=== PATIENT | male | born 2000 | race Caucasian/White ===

== ENCOUNTER 2022-07-18 17:01 | Emergency (ER) | payer SELFPAY ==
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
[2022-07-18 17:42] VITALS: BP 120/85; PULSE 70; RESP 18; TEMP 36.7; O2SAT 98
--- NOTE | 2022-07-18 18:19 | ED.WOUNDLAC ---
HPI - Wound/Laceration General Chief Complaint: Wound/Laceration Stated Complaint: hand laceration Time Seen by Provider: 07/18/22 18:10 History of Present Illness HPI narrative: Patient is a 22-year-old male presenting with a hand laceration. Patient states that he was putting together a new bed frame when he slipped with some scissors and cut himself on his left hand. States that he sustained a laceration which immediately started bleeding. States that it continues to bleed despite putting gauze on it. Denies further injuries or complaints. Related Data Home Medications Medication Instructions Recorded Confirmed No Home Medications 07/18/22 07/18/22 Allergies Allergy/AdvReac Type Severity Reaction Status Date / Time No Known Allergies Allergy Verified 07/18/22 18:00 Review of Systems Review of Systems: All systems reviewed & are unremarkable except as noted in HPI and below Exam Narrative: GENERAL: Well-appearing, well-nourished, and in no acute distress. HEAD: Normocephalic, atraumatic. EYES: PERRLA and EOMI. ENT: Nares clear, no rhinorrhea or epistaxis. Mucous membranes moist. NECK: Supple. CHEST: Clear to auscultation. No respiratory distress. HEART: Regular rate and rhythm. No murmur heard. Normal peripheral pulses. ABDOMEN: Soft, nontender, nondistended, normal active bowel sounds. EXTREMITIES: 1 cm laceration to the dorsal aspect of the patient's left hand between first and second digits, neurovascularly intact SKIN: Warm, dry, no rash. NEURO: No focal deficits. Alert and oriented x3. PSYCH: Normal mood and affect. Course Vital Signs Vital signs: Vital Signs Temperature 98.0 F 07/18/22 17:42 Pulse Rate 70 07/18/22 17:42 Respiratory Rate 18 07/18/22 17:42 Blood Pressure 120/85 07/18/22 17:42 Pulse Oximetry 98 07/18/22 17:42 Oxygen Delivery Room Air 07/18/22 17:42 Temperature 98.2 F 07/18/22 20:44 Pulse Rate 84 07/18/22 20:44 Respiratory Rate 18 07/18/22 20:44 Blood Pressure 120/71 07/18/22 20:44 Pulse Oximetry 97 07/18/22 20:44 Oxygen Delivery Room Air 07/18/22 17:42 Procedures Laceration Laceration 1: Date: 07/18/22 Site: hand Side (If applicable): left Size (cm): 1 Description: linear Depth: simple, single layer Local Anesthetic: lidocaine 1% Pre-repair: irrigated ====== Skin Level ====== Skin layer closed with: nylon Size (cm): 4-0 Number of sutures: 3 Technique: simple, interrupted ====== Subcutaneous Layer ====== ====== Muscle Layer ====== ====== Tendon Layer ====== MDM - Wound/Laceration MDM Narrative Medical decision making narrative: Patient is a 22-year-old male presenting with a laceration to his left hand. Tetanus was updated. X-ray was obtained which shows a retained foreign body along the lateral aspect of his left hand by his fifth metacarpal. Patient's laceration is on the medial aspect between his first and second digit. Do not feel that this retained foreign body is related to his current injury. Laceration was repaired at bedside without complication. Advised that he have the stitches removed in 10 to 14 days. Appropriate return precautions were given. Patient voiced understanding and is agreeable with plan. Discharged in stable condition. Critical Care Time Critical Care Time Critical Care Time: No Discharge Plan Discharge Clinical Impression: Laceration Patient Disposition: Home, Self-Care Condition: Stable Instructions: Antibiotic Form, Laceration (ED) Additional Instructions: Please follow-up with primary care. Please have your stitches removed in 10 to 14 days. If you develop symptoms concerning for infection such as spreading redness or fevers, or other concerning symptoms arise, please return to the ER. Prescriptions: No Action No Home Medications Follow-up/Referrals:
[2022-07-18] MEDS: TETANUS,DIPHTHERIA,AC PERTUSSIS ADULT (0.5 ML) BOOSTRIX IM (19:40)
[2022-07-18 20:44] VITALS: BP 120/71; PULSE 84; RESP 18; TEMP 36.8; O2SAT 97
== END 2022-07-18 20:46 | disposition home or self-care (01) ==
PROVIDERS: Emergency Provider Emergency Medicine
DX: S61.412A Laceration without foreign body of left hand, initial encounter (principal); W27.2XXA Contact with scissors, initial encounter; Z23 Encounter for immunization
CPT/HCPCS: 12001; 73120; 90471; 90715; 99283